=== PATIENT | female | born 1960 | race Caucasian/White ===

== ENCOUNTER 2016-09-24 09:50 | Day surgery (SDC) | payer OTHER ==
--- NOTE | ~2016-09-24 | EGD ---
EGD REPORT [facility] [address] [address] NAME: LORRI IRAHETA : 60 STATUS : REG [facility]#: [id number] AGE: 56 ADM/REG DATE : 09/24/16 MR#: [id number] REPORT SERV DATE: 09/24/16 DICTATED BY: RACHEL WEST DATE: 09/24/16 REPORT STATUS : Draft TRANSCRIBED BY: [facility] DATE: 09/24/16 Pulmonology Patient Name: Lorri Iraheta Procedure Date: 09/24/2016 11:08 AM Date of : 1960 Attending MD: KISHORE WEST MD Procedure Date No Time: 09/24/2016 Procedure: EBUS Indications: RUL lung mass with mediastinal adenopathy Providers: KISHORE WEST MD Referring MD: Scotty Valero Medicines: Lidocaine 2% 20 mL; topical epinerphrine 5 ccs Complications: No immediate complications Procedure: Pre-Anesthesia Assessment: - A History and Physical has been performed. Patient meds and allergies have been reviewed. The risks and benefits of the procedure and the sedation options and risks were discussed with the patient. All questions were answered and informed consent was obtained. Patient identification and proposed procedure were verified prior to the procedure by the physician and the nurse in the procedure room. Mental Status Examination: normal. Respiratory Examination: clear to auscultation. CV Examination: normal and RRR, no murmurs, no S3 or S4. ASA Grade Assessment: III - A patient with severe systemic disease. After reviewing the risks and benefits, the patient was deemed in satisfactory condition to undergo the procedure. The anesthesia plan was to use general anesthesia. Immediately prior to administration of medications, the patient was re-assessed for adequacy to receive sedatives. The heart rate, respiratory rate, oxygen saturations, blood pressure, adequacy of pulmonary ventilation, and response to care were monitored throughout the procedure. The physical status of the patient was re-assessed after the procedure. After obtaining informed consent, the Bronchoscope was introduced through the mouth, via the endotracheal tube (the patient was intubated for the procedure) and advanced to the tracheobronchial tree. the BF [id number] was introduced through the mouth, via the endotracheal tube (the patient was intubated for the procedure) and advanced to the tracheobronchial tree. The procedure was accomplished without difficulty. The patient tolerated the procedure well. Findings: EGD REPORT [address] [address] NAME: LORRI IRAHETA : [birth year] [place]US : [place] [facility] [place]#: [id number] AGE: 56 ADM/REG DATE : 09/24/16 MR#: [id number] REPORT SERV DATE: 09/24/16 DICTATED BY: RACHEL WEST DATE: 09/24/16 REPORT STATUS : Draft TRANSCRIBED BY: [employer] DATE: 09/24/16 The endotracheal tube is in good position. The visualized portion of the trachea is of normal caliber. The keena is sharp. The tracheobronchial tree was examined to at least the first subsegmental level. RUL large friable endobronchial lesion. The MISA is partially obstructed due to extrinsic and intrinsic compression. Balloon bronchoplasty was performed with relief of stenosis from 50% to 25%. Endobronchial biopsies were performed in the right mainstem bronchus of the lung using a forceps and sent for histopathology examination. Four samples were obtained. Brushings were obtained in the right upper lobe of the lung and sent for routine cytology. One sample was obtained. Bronchoalveolar lavage was performed in the right upper lobe of the lung and sent for routine cytology. 60 mL of fluid were instilled. 20 mL were returned. The return was blood-tinged and cellular. EBUS TBNA of lymph node level 11L x 4 passes for cytology EBUS TBNA of lymph node level 7 x 4 passes for cytology EBUS TBNA of right upper lobe lung mass x 6 passes for cytology The FiO2 was lowered to less than 40% and argon plasma coagulation therapy (0.8 L/min, 15 zee) was performed for destruction of tissue and hemostasis. 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 Recommendation: - Await test results. - Chest X-ray. - Complete pulmonary function tests. - PET scan. - MRI of the brain with and without contrast - Refer to/consult with Oncology. Attending Participation: I personally performed the entire procedure. KISHORE WEST MD 09/24/2016 12:34 PM This report has been signed electronically. Number of Addenda: 0 Note Initiated On: 09/24/2016 11:08 AM [address] [id number]
--- NOTE | ~2016-09-24 | CN ---
Consultation Report [facility] [address] [place]. [address] NAME: LORRI IRAHETA : 60 STATUS : REG [facility] PAT#: [id number] AGE: 56 ADM/REG DATE : 09/24/16 MR#: [id number] REPORT SERV DATE: 09/25/16 DICTATED BY: TIFFANIE WEST DATE: 09/24/16 REPORT STATUS : Draft TRANSCRIBED BY: MODL DATE: 09/24/[address] CHE AND MAHOGANY HAQUE CASE AIDE: THANK YOU FOR REQUESTING MY OPINION REGARDING EVALUATION AND MANAGEMENT OF MS. LORRI IRAHETA' LARGE RIGHT UPPER LOBE LUNG MASS, MEDIASTINAL LYMPHADENOPATHY, AND BILATERAL SUBCENTIMETER PULMONARY NODULES. MS. IRAHETA IS AN EXTREMELY PLEASANT 56-YEAR-OLD FEMALE WITH A SIGNIFICANT PAST MEDICAL HISTORY OF TOBACCO ABUSE, ANXIETY, HYPERLIPIDEMIA, CHRONIC LOW BACK PAIN AND CHRONIC BILATERAL LOWER LEG EDEMA, WHO PRESENTS TO [facility] FOR FORMAL EVALUATION OF AN ABNORMAL CT SCAN. THE PATIENT STATES THAT SHE HAS HAD A ONE-MONTH HISTORY OF WORSENING SHORTNESS OF BREATH, WHICH WAS ORIGINALLY ATTRIBUTED TO LISINOPRIL AND CHANGED TO [place]. HER SYMPTOMS RESPONDED. HOWEVER, A CHEST X-RAY ON 08/17/2016 DEMONSTRATED A POSSIBLE RIGHT LUNG MASS WITH ATELECTASIS IN THE RIGHT UPPER LOBE. SUBSEQUENT CT SCAN OF THE CHEST PERFORMED AT [facility] ON 09/17/2016 CONFIRMED THE PRESENCE OF A LARGE SOFT TISSUE MASS IN THE MEDIAL ASPECT OF THE RIGHT UPPER LOBE, EXTENDING TO THE RIGHT HILAR REGION AND RIGHT PARATRACHEAL REGION, MEASURING AT LEAST 4.4 X 3.8 X 3.4 CM. THE PATIENT ALSO HAD SEVERAL SOFT TISSUE NODULES IN BOTH LUNGS AND MINIMALLY PROMINENT RIGHT HILAR AND SUBCARINAL LYMPH NODES. THE PATIENT ALSO HAD OTHER INCIDENTAL FINDINGS, INCLUDING A FATTY INFILTRATION OF THE LIVER AND PRIOR CHOLECYSTECTOMY. DR. CHE WAS CONTACTED AND MADE A RECOMMENDATION FOR FORMAL BIOPSY. THE PATIENT STATES THAT HER SYMPTOMS, IN TERMS OF HER COUGH, ARE MILD IN NATURE, WELL LOCALIZED TO THE CHEST, NONRADIATING WITH NO SIGNIFICANT ALLEVIATING OR EXACERBATING FACTORS. SHE SUFFERS FROM EXTREME ANXIETY FROM THE KNOWLEDGE OF HER PRIOR CT SCAN OF THE CHEST. HER HISTORY IS LIMITED BY THE FACT THAT SHE DOES NOT WANT NECESSARILY ENGAGE IN ANY FURTHER DISCUSSION ABOUT WHAT THE WORKUP SHOULD BE. SHE STATES THAT SHE WANTS TO PUT HER TRUST IN ME AND MOVE FORWARD WITH A BIOPSY. DATE OF CONSULTATION: REVIEW OF SYSTEMS: A detailed 14-point review of systems is completed. Pertinent positives and negatives are listed above. PAST MEDICAL HISTORY: 1. Hyperlipidemia. 2. Cough. 3. Back pain. PAST SURGICAL HISTORY: As above. SOCIAL HISTORY: The patient smoked for many years. She denies any significant alcohol or illicit drug abuse. Consultation Report [place] [address] [place]. [address] NAME: LORRI IRAHETA : 60 STATUS : REG [facility] PAT#: [id number] AGE: 56 ADM/REG DATE : 09/24/16 MR#: [id number] REPORT SERV DATE: 09/25/16 DICTATED BY: TIFFANIE WEST DATE: 09/24/16 REPORT STATUS : Draft TRANSCRIBED BY: ALEN DATE: 09/24/16 FAMILY HISTORY: Noncontributory. ALLERGIES: NO KNOWN DRUG ALLERGIES. HOME MEDICATIONS: Reviewed and located in the paper chart. PHYSICAL EXAMINATION: VITAL SIGNS: Reviewed and located in the paper chart. GENERAL: No acute distress. Extremely anxious. HEENT: Normocephalic and atraumatic. Pupils are equal, round, reactive to light and accommodation. Posterior oropharynx is clear. NECK: No JVD. No LAD. Trachea midline. CARDIOVASCULAR: Regular rate and rhythm. S1 and S2 present. LUNGS: Diminished breath sounds largely due to body habitus, otherwise clear. SKIN: No new rashes, lesions, or ulcers. PSYCHIATRIC: Alert and oriented x3. Extreme anxiety. ABDOMEN: Nontender, nondistended, protuberant. EXTREMITIES: No clubbing or cyanosis. Mild lower leg edema noted in a dependent fashion. IMAGING: CT scan of the chest performed at [facility] and pushed over to our PAC system performed on 09/17/2016 was personally reviewed by me and I agree with the following interpretation. There is a mild enhancing soft tissue mass in the right paratracheal region and the right suprahilar region. The mass measures up to 4.4 in AP dimension, 3.8 in transverse dimension, and 3.4 cm in the craniocaudal dimension. The right upper lobe bronchus is completely occluded with near complete atelectasis of the right upper lobe. There is also a 6 mm pleural-based soft tissue nodule in the lateral aspect of the right middle lobe and several smaller lung nodules in the right middle lobe, measuring up to 2 mm, and a pleural-based soft tissue nodule in the right lower lobe in image 38 measures 3 x 6 mm. No infiltrates or effusions. The left lung is well expanded. There is a 4.5 mm soft tissue nodule in the posterior aspect of the left upper lobe. A soft tissue nodule is noted in the pericardial region, and a soft tissue nodule along the major fissure measures 3 x 4 mm. Another soft tissue nodule in the posterior aspect of the superior segment of the left lower lobe measures 3 x 5 mm. Additional left lower lobe lung lesion measures 6 x 7 mm. There is a 10 x 8 mm right infrahilar lymph node and a subcarinal node that measures 11 x 9 mm. The partially visualized liver shows diffuse fatty infiltration, but no obvious metastatic disease, and the adrenal glands appear to be normal. No suspicious osseous lesions are noted. ASSESSMENT AND PLAN: Ms. Lorri Iraheta is an extremely pleasant 56-year-old female with a significant past medical history of hyperlipidemia, chronic lower extremity edema, chronic low back pain and smoking, who presents to [facility] for formal evaluation of a large right upper lobe lung mass with mediastinal involvement as well as multiple subcentimeter lung nodules and mediastinal lymphadenopathy. The right upper lobe is noted to be completely occluded with partial obstruction of the right mainstem. Consultation Report [place] [id number] [facility] [place]. [address] NAME: LORRI IRAHETA : 60 STATUS : REG [facility] PAT#: [id number] AGE: 56 ADM/REG DATE : 09/24/16 MR#: [id number] REPORT SERV DATE: 09/25/16 DICTATED BY: TIFFANIE WEST DATE: 09/24/16 REPORT STATUS : Draft TRANSCRIBED BY: MODL DATE: 09/24/16 The clinical and radiographic presentation is most consistent with primary bronchogenic carcinoma until proven otherwise. Other potential etiologies include a foreign body with postobstructive consolidation, rounded pneumonia, and metastatic disease. At this point, Ms. Iraheta needs an appropriate diagnostic as well as a possible therapeutic intervention. We had a very limited discussion about potential options, including surgery or CT-guided needle biopsy. However, the patient did not wish to discuss any of the other options and put her trust in me and refused to discuss any further. She is aware that the procedure is considered an outpatient procedure, but refused to discuss any potential complications. At this point, I recommend the followin. Proceed with EBUS bronchoscopy. The patient refused to discuss any potential other diagnostic or therapeutic options. She stated that she placed her yazan in me and would like to proceed forward. She refused to discuss any of the potential complications associated with the procedure. 2. Assuming her biopsy is positive on site, I will order staging studies, including an MRI of the brain with and without contrast and PET-CT scan. 3. I will arrange for appropriate co-consultations, including Medical Oncology. Thank you for allowing me to participate in Ms. Lorri Iraheta' care. KB/MODL Tiffanie West M.D. / [id number] CC: Mike Zamora NP
[~2016-09-24 09:50] MED LIST: ASAB PO; BYSTOLIC5 MG PO; CHOLESTEROL MED PO; GLUCXL2.5 PO; NORV5 PO; SULAR PO
[2016-09-24 10:20] LABS: BASOPHILS 0.6 %; BASOPHILS ABSOLUTE 0.05 10/3/uL (0.0-0.16); EOSINOPHILS 2.7 %; EOSINOPHILS ABSOLUTE 0.21 10/3/uL (0.0-0.53); HEMATOCRIT 43.8 % (36.0-48.0); HEMOGLOBIN 14.5 g/dL (12.0-16.0); IMMATURE GRANULOCYTES 0.9 %; IMMATURE GRANULOCYTES ABSOLUTE 0.07 10/3/uL (0.0-0.11); LYMPHOCYTES 25.5 %; LYMPHOCYTES ABSOLUTE 2.02 10/3/uL (0.67-4.30); MEAN CORPUS HGB CONC 33.1 g/dL (32.0-36.0); MEAN CORPUSCULAR HEMOGLOB 27.8 pg (26.0-34.0); MEAN CORPUSCULAR VOLUME 84.1 fL (80-100); MEAN PLATELET VOLUME 9.7 fL (9.2-13.0); MONOCYTES 6.3 %; NEUTROPHILS ABSOLUTE 5.07 10/3/uL (2.02-8.40); PLATELET COUNT 257 10/3/uL (150-400); RBC DISTRIBUTION WIDTH 14.2 % (12.0-16.0); RED CELL COUNT 5.21 10/6/uL (4.0-5.6); WHITE BLOOD CELLS 7.9 10/3/uL (4.5-10.5)
[2016-09-24 10:26] LABS: INTERNATIONAL NORMAL RATI 1.1 UNITS (-); PARTIAL THROMBO TIME 29.4 SEC (22.5-37.2)
[2016-09-24 10:32] LABS: BUN (BLOOD UREA NITROGEN) 10 MG/DL (6-23); CALCIUM, SERUM 8.6 MG/DL (8.5-10.4); CHLORIDE, SERUM 106 MMOL/L (96-112); CO2 (CARBON DIOXIDE) 26 MMOL/L (24-34); CREATININE 0.77 MG/DL (0.55-1.02); GFR AFRICAN AMERICAN 100 ML/MIN (>=60); GFR NON AFRICAN AMERICAN 86 ML/MIN (>=60); GLUCOSE, SERUM 166 MG/DL (60-99); POTASSIUM, SERUM 4.1 MMOL/L (3.5-5.3); SODIUM, SERUM 141 MMOL/L (135-148)
[2016-10-08] MEDS ORDERED: ULTRAM50 PO (15:21)
[2016-10-08] MEDS ORDERED: BEN25 PO (15:21)
[2016-10-08] MEDS ORDERED: PRAV10 PO (15:21)
[2016-10-10] MEDS ORDERED: PAX20 PO (06:39)
== END 2016-09-24 23:59 | disposition home or self-care (01) ==
LOC: DMU 09:50
PROVIDERS: Anesthesiology; Internal Medicine
PROC: 0BL Respiratory System, Occlusion (ICD-10-PCS; principal; 2016-09-24 11:00)
PROC: 0BB38ZX Excision of Right Main Bronchus, Via Natural or Artificial Opening Endoscopic, Diagnostic (ICD-10-PCS; 2016-09-24 11:00)
PROC: 07974ZX Drainage of Thorax Lymphatic, Percutaneous Endoscopic Approach, Diagnostic (ICD-10-PCS; 2016-09-24 11:00)
PROC: 0BBC8ZX Excision of Right Upper Lung Lobe, Via Natural or Artificial Opening Endoscopic, Diagnostic (ICD-10-PCS; 2016-09-24 11:00)
PROC: 0B948ZX Drainage of Right Upper Lobe Bronchus, Via Natural or Artificial Opening Endoscopic, Diagnostic (ICD-10-PCS; 2016-09-24 11:00)
PROC: 0B7 Respiratory System, Dilation (ICD-10-PCS; 2016-09-24 11:00)
DX: C34.11 Malignant neoplasm of upper lobe, right bronchus or lung (principal); C77.1 Secondary and unspecified malignant neoplasm of intrathoracic lymph nodes; I10 Essential (primary) hypertension; E11.9 Type 2 diabetes mellitus without complications; E78.00 Pure hypercholesterolemia, unspecified; F17.210 Nicotine dependence, cigarettes, uncomplicated; Z88.5 Allergy status to narcotic agent; Z88.0 Allergy status to penicillin; Z88.8 Allergy status to other drugs, medicaments and biological substances; Z96.1 Presence of intraocular lens; Z98.41 Cataract extraction status, right eye; Z98.42 Cataract extraction status, left eye; Z90.710 Acquired absence of both cervix and uterus; Z90.49 Acquired absence of other specified parts of digestive tract; Z79.899 Other long term (current) drug therapy
CPT/HCPCS: 71010; 80048; 82962; 85025; 85610; 85730; 88112; 88172; 88173; 88305; 88333; 88341; 88342; 93005; A9270-GY; C1725; C1726; J2250; J2370; J2405; J2710; J3010